=== PATIENT | male | born 1940 | race Caucasian/White ===

== ENCOUNTER 2017-03-26 21:36 | Observation (INO) | payer MEDICARE, OTHER ==
[~2017-03-26] VITALS: Ht 190.5 cm; Wt 90.9 kg
[~2017-03-26 21:36] MED LIST: ADVIL 200MG TA200 MG PO; AMBIEN 10MG10 MG PO; BENADRYL25 M2 PO; CELEXA 20MG20 MG/TAB PO; CENTRUM SILVER1 CTB PO; DULCOLAX TAB5 MG PO; FIBERCON PO; HYZAAR 50-12.1 UDTAB PO; I-VITE LUTEIN1 TAB PO; LASIX 20MG TABL20 MG PO; LOTREL 10 MG-201 CAP PO; MILK OF MA400 MG/5 M PO; MOTRIN 200200 MG/TAB PO; MULTIPLE VITAMI1 CAP PO; NEURONTIN100 MG/CAP PO; NORCO 325 MG-101 TAB PO; NORCO 325 MG-51 TAB PO; NORCO 325 MG-7.1 TAB PO; NORVASC 10MG10 MG PO; OMNICEF 300MG300 MG PO; PIROXICAM PO; PRILOSEC 20MG20 MG PO; ROBAXIN 75750 MG/TAB PO; TOPROL XL 50MG50 MG PO; TYLENOL 500MG500 MG PO; ULTRAM 50MG TAB50 MG PO; XARELTO10 MG PO; XARELTO20 MG PO; ZOCOR 10MG10 MG PO; ZYRTEC 10MG10 MG PO; [UNRECOGNIZED DRUG - OTHER] PO; garlic PO; melatonin PO
[2017-03-26 22:08] LABS: BASO # 0.1 (0.0-0.2); BASO % 0.4 % (0.0-2.0); EOS # 0.3 (0.0-0.7); GRAN # 12.9 (1.4-6.5); GRAN % 82.7 % (42.2-75.2); LYMPH # 1.4 (1.2-3.4); LYMPH % 8.9 % (20.0-51.0); MEAN CELL VOLUME 84 fl (80.0-100.0); MEAN CORPUSCULAR HGB CONC 32 g/dl (33.0-37.0); MEAN PLATELET VOLUME 10.2 fl (7.4-10.4); MONO # 0.9 (0.1-0.6); MONO % 5.6 % (1.7-9.3); PLATELET COUNT 222 K/mm3 (130-400); RED BLOOD COUNT 4.37 M/mm3 (4.20-5.60); REDCELL DISTRIBUTION WIDTH-CV 14.6 % (11.5-14.5); WHITE BLOOD COUNT 15.6 K/mm3 (4.8-10.8)
[2017-03-26 22:15] LABS: HEMATOCRIT 36.7 % (42.0-52.0); HEMOGLOBIN 11.6 g/dl (13.5-18.0); MEAN CORPUSCULAR HEMOGLOBIN 27 pg (27.0-31.0)
[2017-03-26 22:18] LABS: ADJUSTED CALCIUM 8.7 mg/dL (8.4-10.2); ALANINE AMINOTRANSFERASE 19 U/L (21-72); ALBUMIN 4.4 gm/dL (3.5-5.0); ALKALINE PHOSPHATASE 96 U/L (50-136); ANION GAP 13 mmol/L (7-16); BILIRUBIN,TOTAL 0.8 mg/dL (0.0-1.0); BLOOD UREA NITROGEN 14 mg/dL (9-20); CARBON DIOXIDE 26 mmol/L (22-30); CHLORIDE 97 mmol/L (98-107); CREATININE, serum 0.99 mg/dL (0.66-1.25); GLUCOSE 105 mg/dL (74-106); POTASSIUM 4.5 mmol/L (3.4-5.0); SODIUM 136 mmol/L (137-145); TOTAL PROTEIN 7.7 gm/dL (6.4-8.2)
[2017-03-26 22:25] LABS: INR 1.4 (0.8-3.0); PROTHROMBIN TIME 15.3 SECONDS (9.7-12.8)
[2017-03-26 22:29] LABS: B-TYPE NATRIURETIC PEPTIDE 1770 pg/mL (0-450)
[2017-03-26 22:38] LABS: TROPONIN-I < 0.012 ng/mL (0.000-0.034)
[2017-03-27] VITALS (8 sets, daily range): BP systolic 108–167; BP diastolic 40–68; PULSE 57–122; TEMP 97.9–98.6
[2017-03-27 06:53] LABS: MEAN CELL VOLUME 85 fl (80.0-100.0); MEAN CORPUSCULAR HGB CONC 31 g/dl (33.0-37.0); MEAN PLATELET VOLUME 10.5 fl (7.4-10.4); PLATELET COUNT 205 K/mm3 (130-400); REDCELL DISTRIBUTION WIDTH-CV 14.7 % (11.5-14.5); WHITE BLOOD COUNT 11.6 K/mm3 (4.8-10.8)
[2017-03-27 06:58] LABS: HEMATOCRIT 34.8 % (42.0-52.0); HEMOGLOBIN 10.9 g/dl (13.5-18.0); MEAN CORPUSCULAR HEMOGLOBIN 27 pg (27.0-31.0)
[2017-03-27 06:59] LABS: ADD PATHOLOGY DIFF REVIEW NO
[2017-03-27 07:02] LABS: CALCIUM 8.5 mg/dL (8.4-10.2); CREATININE, serum 1.11 mg/dL (0.66-1.25); POTASSIUM 4.4 mmol/L (3.4-5.0)
[2017-03-27 08:17] LABS: BAND 15 % (0-10); NEUTROPHILS 82 % (42.0-75.2); TOTAL CELLS COUNTED 100
[2017-03-27 08:21] LABS: PLATELET ESTIMATE NORMAL (NORMAL)
[2017-03-27 13:47] LABS: PH 5 (5-8); URINE APPEARANCE Hazy; URINE BACTERIA None Seen /hpf; URINE BILIRUBIN Negative (NEGATIVE); URINE BLOOD Negative (NEGATIVE); URINE COLOR Amber; URINE GLUCOSE Negative (NEGATIVE); URINE KETONE Negative (NEGATIVE); URINE RBC 0-2 /hpf; URINE UROBILINOGEN Negative (NEGATIVE)
[2017-03-27 14:21] LABS: SQUAMOUS EPITHELIAL 0-2 /hpf
[2017-03-28 03:38] VITALS: BP 150/53; PULSE 63; TEMP 98.4
[2017-03-28 07:57] VITALS: BP 148/53; PULSE 62; TEMP 97.8
[2017-03-28 12:15] VITALS: BP 152/52; PULSE 65; TEMP 97.9
[2017-03-28] MEDS ORDERED: ZITHROMAX 250M250 MG PO (15:41)
[2017-03-28] MEDS ORDERED: MUCINEX DM 30 M1 TE1 PO (15:42)
[2017-03-28] MEDS ORDERED: RT ADVAIR HFA 1112 G IH (15:43)
[2017-03-28] MEDS ORDERED: MEDROL 4MG DOSPA4 MG PO (15:44)
== END 2017-03-28 16:10 | disposition home or self-care (01) ==
LOC: COL.ER 21:36 → MEDICAL 22:58
PROVIDERS: Emergency Medicine; Family Medicine
DX: J44.1 Chronic obstructive pulmonary disease with (acute) exacerbation (principal); B34.9 Viral infection, unspecified; I48.0 Paroxysmal atrial fibrillation; I11.0 Hypertensive heart disease with heart failure; I50.30 Unspecified diastolic (congestive) heart failure; E78.5 Hyperlipidemia, unspecified; M54.9 Dorsalgia, unspecified; G89.29 Other chronic pain; D64.9 Anemia, unspecified; M19.90 Unspecified osteoarthritis, unspecified site; G47.00 Insomnia, unspecified; Z79.01 Long term (current) use of anticoagulants; Z87.891 Personal history of nicotine dependence
CPT/HCPCS: 99222-AI; G0378; G8978-GP; G8979-GP; J0456; J0696; J1885; J7030; J7050; J7512

== ENCOUNTER 2019-01-03 11:06 | Emergency (ER) | payer MEDICARE, OTHER ==
[~2019-01-03] VITALS: Ht 190.5 cm; Wt 93.2 kg
[~2019-01-03 11:06] MED LIST changes: +MEDROL 4MG DOSPA4 MG PO; +MUCINEX DM 30 M1 TE1 PO; +RT ADVAIR HFA 1112 G IH; +ZITHROMAX 250M250 MG PO
[2019-01-03 11:13] VITALS: TEMP 97.6
[2019-01-03 12:32] LABS: BASO % 0.4 % (0.0-2.0); EOS # 0.5 (0.0-0.7); EOS % 5.6 % (0-4.0); GRAN # 5.3 (1.4-6.5); LYMPH # 1.8 (1.2-3.4); LYMPH % 21.5 % (20.0-51.0); MEAN CELL VOLUME 89 fl (80.0-100.0); MEAN CORPUSCULAR HEMOGLOBIN 28 pg (27.0-31.0); MEAN CORPUSCULAR HGB CONC 32 g/dl (33.0-37.0); MEAN PLATELET VOLUME 9.9 fl (7.4-10.4); MONO # 0.7 (0.1-0.6); PLATELET COUNT 191 K/mm3 (130-400); RED BLOOD COUNT 3.88 M/mm3 (4.20-5.60); REDCELL DISTRIBUTION WIDTH-CV 14.2 % (11.5-14.5)
[2019-01-03 12:33] LABS: HEMATOCRIT 34.4 % (42.0-52.0)
[2019-01-03 12:41] LABS: ALBUMIN 3.7 gm/dL (3.5-5.0); BILIRUBIN,TOTAL 0.3 mg/dL (0.0-1.0); CALCIUM 8.7 mg/dL (8.4-10.2); CREATININE, serum 0.95 mg/dL (0.66-1.25); POTASSIUM 4.6 mmol/L (3.4-5.0); TOTAL PROTEIN 6.7 gm/dL (6.4-8.2)
[2019-01-03] MEDS ORDERED: AMOXICILLIN 8751 TAB PO (13:04)
[2019-01-03 13:24] LABS: COLLECTION METHOD CLEAN CATCH
[2019-01-03 13:32] LABS: PH 8 (5-8); SQUAMOUS EPITHELIAL None Seen /hpf; URINE APPEARANCE Clear; URINE BACTERIA None Seen /hpf; URINE BILIRUBIN Negative (NEGATIVE); URINE BLOOD Negative (NEGATIVE); URINE COLOR Yellow; URINE GLUCOSE Negative (NEGATIVE); URINE KETONE Negative (NEGATIVE); URINE LEUKOCYTE ESTERASE Negative (NEGATIVE); URINE NITRATE Negative (NEGATIVE); URINE PROTEIN(semi-quant) 2+ (NEGATIVE); URINE RBC 0-2 /hpf; URINE UROBILINOGEN Negative (NEGATIVE)
[2019-01-03 14:16] VITALS: BP 159/71; PULSE 63
== END 2019-01-03 13:45 | disposition home or self-care (01) ==
LOC: COL.ER 11:06
PROVIDERS: Family Medicine
DX: L03.90 Cellulitis, unspecified (principal)
CPT/HCPCS: J3010; J7030

== ENCOUNTER → 2019-01-11 | Outpatient (CLI) | payer MEDICARE, OTHER ==
[~2019-01-11] MED LIST changes: +AMOXICILLIN 8751 TAB PO
== END ==
LOC: COL.VAS 12:25
DX: M79.89 Other specified soft tissue disorders (principal)

== ENCOUNTER 2019-02-11 14:12 | Emergency (ER) | payer MEDICARE, OTHER ==
[~2019-02-11] VITALS: Ht 190.5 cm; Wt 95.5 kg
[~2019-02-11 14:12] MED LIST changes: +ATROVENT I0.2 MG/1 M IH; +CENTRUM SILVER1 TAB; +DEEP SEA 45 ML45 ML NS; +DOXYCYCLINE 10100 MG PO; +ELIQUIS 5MG PO; +FIBERCON; +FLONASE NASAL S16 GM NS; +MOTRIN 400400 MG/TAB PO; +MUCUS RELIEF400 M1 PO; +PREDNISONE20 MG PO; +PRESERVISION1 SGL PO; +PULMICORT0.5 MG/2 M IH
[2019-02-11 14:19] VITALS: TEMP 99.7
[2019-02-11 15:25] LABS: BASO % 0.5 % (0.0-2.0); EOS # 0.3 (0.0-0.7); EOS % 3.2 % (0-4.0); GRAN # 5.1 (1.4-6.5); GRAN % 65.5 % (42.2-75.2); HEMOGLOBIN 10.9 g/dl (13.5-18.0); LYMPH # 1.9 (1.2-3.4); LYMPH % 24.2 % (20.0-51.0); MEAN CELL VOLUME 91 fl (80.0-100.0); MEAN CORPUSCULAR HEMOGLOBIN 28 pg (27.0-31.0); MEAN CORPUSCULAR HGB CONC 31 g/dl (33.0-37.0); MEAN PLATELET VOLUME 10.2 fl (7.4-10.4); MONO # 0.5 (0.1-0.6); MONO % 6.1 % (1.7-9.3); PLATELET COUNT 240 K/mm3 (130-400); RED BLOOD COUNT 3.85 M/mm3 (4.20-5.60); REDCELL DISTRIBUTION WIDTH-CV 14.3 % (11.5-14.5)
[2019-02-11 15:41] LABS: ALANINE AMINOTRANSFERASE 15 U/L (21-72); ALBUMIN 4.1 gm/dL (3.5-5.0); ALKALINE PHOSPHATASE 59 U/L (50-136); ANION GAP 9 mmol/L (7-16); AST,SGOT 32 U/L (15-37); BILIRUBIN,TOTAL 0.3 mg/dL (0.0-1.0); BLOOD UREA NITROGEN 19 mg/dL (9-20); C-REACTIVE PROTEIN 1.8 mg/dL (0.0-0.9); CALCIUM 9.3 mg/dL (8.4-10.2); CARBON DIOXIDE 29 mmol/L (22-30); CHLORIDE 99 mmol/L (98-107); GLUCOSE 121 mg/dL (74-106); POTASSIUM 4.6 mmol/L (3.4-5.0); SODIUM 136 mmol/L (137-145); TOTAL PROTEIN 7.5 gm/dL (6.4-8.2)
[2019-02-11 15:53] LABS: TROPONIN-I < 0.012 ng/mL (0.000-0.035)
[2019-02-11 17:26] LABS: COLLECTION METHOD CLEAN CATCH
[2019-02-11 17:33] LABS: PH 7 (5-8); SQUAMOUS EPITHELIAL None Seen /hpf; URINE APPEARANCE Clear; URINE BACTERIA None Seen /hpf; URINE BILIRUBIN Negative (NEGATIVE); URINE BLOOD Negative (NEGATIVE); URINE COLOR Yellow; URINE GLUCOSE Negative (NEGATIVE); URINE KETONE Negative (NEGATIVE); URINE LEUKOCYTE ESTERASE Negative (NEGATIVE); URINE NITRATE Negative (NEGATIVE); URINE PROTEIN(semi-quant) 2+ (NEGATIVE); URINE RBC 0-2 /hpf; URINE UROBILINOGEN Negative (NEGATIVE)
--- NOTE | 2019-02-11 17:38 | NUR ---
TSERING was contacted by ED doctor about patient possibly needing SNF placement. TSERING met with patient and about options. Patient was recently admitted to the hospital from 02/02-02/04 and was set up with [facility]. Patient did not have 3 inpatient midnights in the hospital within the last 30 days, so he is not eligible for a skilled stay paid for by Medicare. Patient's reports she spoke with Tuyet from [facility] today and she would like to know if patient would be able to go to [facility] from the ED. TSERING conacted Tuyet and she reports [facility] is full and patient is too functional for [facility]. TSERING reported this information to patient and . Patient's requested TSERING inquire about private paying for a skilled stay at [facility]. TSERING contacted Tomas from [facility] and he reports it is $256/day and if patient were to stay for 2 weeks, patient and would have to pay $3,300 up front and Medicare would pay for PT and OT. Patient and are both agreeable to this plan and think that a two week skilled stay at [facility] would benefit patient. TSERING faxed patient's information to Tomas and is waiting for a call back about patient acceptance.
--- NOTE | 2019-02-11 18:05 | NUR ---
Patient was accepted to [facility] for a 2 week respite stay. SW faxed discharge orders and updated ED staff.
[2019-02-11] MEDS ORDERED: DOXYCYCLINE HY100 MG PO (18:28)
[2019-02-11 18:45] VITALS: BP 165/78; PULSE 56
== END 2019-02-11 18:45 ==
LOC: COL.ER 14:12
PROVIDERS: Emergency Medicine
DX: J32.1 Chronic frontal sinusitis (principal); I50.9 Heart failure, unspecified; I11.0 Hypertensive heart disease with heart failure; J44.9 Chronic obstructive pulmonary disease, unspecified; M06.9 Rheumatoid arthritis, unspecified; I48.91 Unspecified atrial fibrillation; E78.5 Hyperlipidemia, unspecified; Z79.01 Long term (current) use of anticoagulants; Z79.51 Long term (current) use of inhaled steroids
CPT/HCPCS: J1940

== ENCOUNTER → 2019-03-06 | Outpatient (REF) ==
[~2019-03-06] MED LIST changes: +DOXYCYCLINE HY100 MG PO
[2019-03-06 09:42] LABS: COLLECTION METHOD CLEAN CATCH
[2019-03-06 09:50] LABS: BASO # 0.1 (0.0-0.2); BASO % 0.5 % (0.0-2.0); EOS # 0.2 (0.0-0.7); EOS % 2.3 % (0-4.0); GRAN # 6.5 (1.4-6.5); GRAN % 66.9 % (42.2-75.2); HEMATOCRIT 33.4 % (42.0-52.0); HEMOGLOBIN 10.5 g/dl (13.5-18.0); LYMPH % 20.5 % (20.0-51.0); MEAN CELL VOLUME 90 fl (80.0-100.0); MEAN CORPUSCULAR HEMOGLOBIN 28 pg (27.0-31.0); MEAN CORPUSCULAR HGB CONC 31 g/dl (33.0-37.0); MEAN PLATELET VOLUME 10.2 fl (7.4-10.4); MONO # 0.9 (0.1-0.6); MONO % 9.1 % (1.7-9.3); PLATELET COUNT 197 K/mm3 (130-400); RED BLOOD COUNT 3.71 M/mm3 (4.20-5.60); REDCELL DISTRIBUTION WIDTH-CV 14.1 % (11.5-14.5)
[2019-03-06 09:53] LABS: PH 7 (5-8); SQUAMOUS EPITHELIAL 0-2 /hpf; URINE APPEARANCE Clear; URINE BACTERIA None Seen /hpf; URINE BILIRUBIN Negative (NEGATIVE); URINE BLOOD Negative (NEGATIVE); URINE COLOR Straw; URINE GLUCOSE Negative (NEGATIVE); URINE KETONE Negative (NEGATIVE); URINE LEUKOCYTE ESTERASE Negative (NEGATIVE); URINE NITRATE Negative (NEGATIVE); URINE PROTEIN(semi-quant) 1+ (NEGATIVE); URINE RBC 0-2 /hpf; URINE UROBILINOGEN Negative (NEGATIVE); URINE WBC 0-2 /hpf
[2019-03-06 10:03] LABS: ALBUMIN 3.4 gm/dL (3.5-5.0); BILIRUBIN,TOTAL 0.1 mg/dL (0.0-1.0); CALCIUM 8.3 mg/dL (8.4-10.2); CREATININE, serum 1.39 (0.66-1.25); POTASSIUM 4.6 mmol/L (3.4-5.0); TOTAL PROTEIN 6.4 gm/dL (6.4-8.2)
== END ==
LOC: ZLAB.STJ 09:41
PROVIDERS: Family Medicine
DX: Z01.89 Encounter for other specified special examinations (principal)

== ENCOUNTER → 2019-03-08 | Outpatient (CLI) | payer MEDICARE, OTHER | LOC: COL.RAD 10:20 | DX: J69.0 Pneumonitis due to inhalation of food and vomit (principal) ==

== ENCOUNTER → 2019-05-03 | Outpatient (CLI) | payer MEDICARE, OTHER | LOC: COL.RAD 08:51 | DX: N18.3 Chronic kidney disease, stage 3 (moderate) (principal); N17.8 Other acute kidney failure ==

== ENCOUNTER 2019-06-06 06:23 | Emergency (ER) | payer MEDICARE ==
[~2019-06-06] VITALS: Ht 190.5 cm; Wt 96.4 kg
[~2019-06-06 06:23] MED LIST changes: -CENTRUM SILVER1 TAB; +CENTRUM SILVER1 TAB PO; +LASIX 40MG TABL40 MG PO; +OCUVITE1 TA1 PO
[2019-06-06 06:24] VITALS: TEMP 98
[2019-06-06 06:38] LABS: PROTHROMBIN TIME 11.9 SECONDS (9.7-12.8)
[2019-06-06 06:41] LABS: PARTIAL THROMBOPLASTIN TIME 29.6 SECONDS (26.0-37.0)
[2019-06-06 06:46] LABS: ALANINE AMINOTRANSFERASE < 6 U/L (21-72); ALBUMIN 4.2 gm/dL (3.5-5.0); ALKALINE PHOSPHATASE 73 U/L (50-136); ANION GAP 13 mmol/L (7-16); AST,SGOT 27 U/L (15-37); BASO % 0.3 % (0.0-2.0); BILIRUBIN,TOTAL 0.4 mg/dL (0.0-1.0); BLOOD UREA NITROGEN 17 mg/dL (9-20); CALCIUM 9.3 mg/dL (8.4-10.2); CARBON DIOXIDE 22 mmol/L (22-30); CHLORIDE 100 mmol/L (98-107); EOS # 0.2 (0.0-0.7); EOS % 1.7 % (0-4.0); GLUCOSE 92 mg/dL (74-106); GRAN # 8.4 (1.4-6.5); GRAN % 69.2 % (42.2-75.2); HEMOGLOBIN 11.1 g/dl (13.5-18.0); LIPASE 138 U/L (23-300); LYMPH # 2.6 (1.2-3.4); LYMPH % 21.7 % (20.0-51.0); MEAN CELL VOLUME 89 fl (80.0-100.0); MEAN CORPUSCULAR HEMOGLOBIN 29 pg (27.0-31.0); MEAN CORPUSCULAR HGB CONC 33 g/dl (33.0-37.0); MEAN PLATELET VOLUME 9.5 fl (7.4-10.4); MONO # 0.8 (0.1-0.6); MONO % 6.2 % (1.7-9.3); PLATELET COUNT 255 K/mm3 (130-400); POTASSIUM 4.9 mmol/L (3.4-5.0); RED BLOOD COUNT 3.81 M/mm3 (4.20-5.60); REDCELL DISTRIBUTION WIDTH-CV 14.9 % (11.5-14.5); SODIUM 136 mmol/L (137-145); TOTAL PROTEIN 7.4 gm/dL (6.4-8.2)
[2019-06-06 06:57] LABS: TROPONIN-I < 0.012 ng/mL (0.000-0.035)
[2019-06-06] MEDS ORDERED: LASIX 20MG TABL20 MG PO (07:05)
[2019-06-06] MEDS ORDERED: FIBERCON PO (07:10)
[2019-06-06] MEDS ORDERED: PREDNISONE20 MG PO (07:34)
[2019-06-06] MEDS ORDERED: AMOXICILLIN 8751 TAB PO (07:34)
[2019-06-06 11:46] VITALS: BP 179/79; PULSE 78
--- NOTE | 2019-06-06 12:12 | NUR ---
TSERING was called by ED nurse to meet with patient and about home resources. Patient was recently discharged from [facility] on 05/26. Patient was set up with [facility] for PT, OT, correction, and a bath aid. [facility] reports that patient was SBA and Mod I when he discharged and was able to walk with his walker. Patient's is his primary companion caregiver but has a lot of support from other family and friends. Patient's reports since patient has been at home, he uses an exercise machine and walks laps around their house with assistance from his walker. reports that they would prefer to be at home but is aware that in the future, they will need to move into assisted living or a long-term. TSERING informed patient's that there are companies, including [facility], that provide extra services but they are private pay. TSERING offered to provide a contact information for these companies but she reported she would like to contact [facility] before using any other companies. TSERING also contacted Lily, the cocktail lounge manager at Dr Fair's office, about patient. Lily reports that she will speak with patient's later today.
== END 2019-06-06 11:43 | disposition home or self-care (01) ==
LOC: COL.ER 06:23 → SURG 07:14 → COL.ER 07:14
PROVIDERS: Emergency Medicine
DX: R06.02 Shortness of breath (principal); I48.91 Unspecified atrial fibrillation; I50.9 Heart failure, unspecified; I11.0 Hypertensive heart disease with heart failure; J44.9 Chronic obstructive pulmonary disease, unspecified; M06.9 Rheumatoid arthritis, unspecified; Z79.01 Long term (current) use of anticoagulants
CPT/HCPCS: J2060; J2930

== ENCOUNTER → 2019-08-18 | Outpatient (CLI) | payer MEDICARE, OTHER | LOC: COL.RAD 08:00 | DX: R13.14 Dysphagia, pharyngoesophageal phase (principal); Z96.9 Presence of functional implant, unspecified; Z96.612 Presence of left artificial shoulder joint ==

== ENCOUNTER 2019-10-13 14:23 | Inpatient (IN) | payer MEDICARE, OTHER ==
[~2019-10-13] VITALS: Ht 188 cm; Wt 94.2 kg
[2019-10-13] MEDS ORDERED: IPRATROPIUM BROM3 M1 IH (14:37)
[2019-10-13] MEDS ORDERED: ATIVAN 0.50.5 MG/TAB PO (14:40)
[2019-10-13] MEDS ORDERED: ZESTRIL40 MG PO (14:40)
[2019-10-13 15:11] LABS: BASO % 0.4 % (0.0-2.0); EOS # 0.3 (0.0-0.7); EOS % 3.6 % (0-4.0); GRAN # 4.7 (1.4-6.5); GRAN % 65.5 % (42.2-75.2); HEMOGLOBIN 10.2 g/dl (13.5-18.0); LYMPH # 1.7 (1.2-3.4); LYMPH % 23.8 % (20.0-51.0); MEAN CELL VOLUME 95 fl (80.0-100.0); MEAN CORPUSCULAR HEMOGLOBIN 30 pg (27.0-31.0); MEAN CORPUSCULAR HGB CONC 31 g/dl (33.0-37.0); MEAN PLATELET VOLUME 9.4 fl (7.4-10.4); MONO # 0.5 (0.1-0.6); MONO % 6.4 % (1.7-9.3); PLATELET COUNT 180 K/mm3 (130-400); RED BLOOD COUNT 3.43 M/mm3 (4.20-5.60); REDCELL DISTRIBUTION WIDTH-CV 12.8 % (11.5-14.5)
[2019-10-13 15:12] LABS: HEMATOCRIT 32.5 % (42.0-52.0)
[2019-10-13 15:17] LABS: INR 1.4 (0.8-3.0); PROTHROMBIN TIME 16.1 SECONDS (9.7-12.8)
[2019-10-13 15:25] LABS: ALANINE AMINOTRANSFERASE 12 U/L (21-72); ALBUMIN 4.2 gm/dL (3.5-5.0); ALKALINE PHOSPHATASE 60 U/L (50-136); ANION GAP 9 mmol/L (7-16); AST,SGOT 20 U/L (15-37); BILIRUBIN,TOTAL 0.2 mg/dL (0.0-1.0); BLOOD UREA NITROGEN 32 mg/dL (9-20); CALCIUM 9.2 mg/dL (8.4-10.2); CARBON DIOXIDE 23 mmol/L (22-30); CHLORIDE 107 mmol/L (98-107); CREATININE, serum 1.84 (0.66-1.25); GLUCOSE 110 mg/dL (74-106); SODIUM 139 mmol/L (137-145); TOTAL PROTEIN 7.3 gm/dL (6.4-8.2)
[2019-10-13 15:28] LABS: C-REACTIVE PROTEIN < 0.5 mg/dL (0.0-0.9)
[2019-10-13 16:28] LABS: MAGNESIUM 2.1 mg/dL (1.6-2.3); PHOSPHOROUS 3.6 mg/dL (2.5-4.5)
[2019-10-13 16:41] LABS: TROPONIN-I < 0.012 ng/mL (0.000-0.035)
--- NOTE | 2019-10-13 20:50 | NUR ---
Patient arrived to medical floor at this time. RECRUITMENT SPECIALIST in room for VS.
[2019-10-13 21:16] VITALS: BP 156/84; PULSE 64; TEMP 97.3
--- NOTE | 2019-10-13 21:44 | NUR ---
Assessment complete. Lungs clear. Heart sounds normal. Bowels active x4. Pulses present throughout. No edema noted. Denies pain at this time. INT right forearm without complications. All questions answered. Orientated to medical floor. Med rec complete. Denies any questions at this time. Requested dinner. Will provided to patient.
[2019-10-13 22:23] LABS: CREATININE, serum 1.74 (0.66-1.25); POTASSIUM 5.7 mmol/L (3.4-5.0)
--- NOTE | 2019-10-13 22:45 | NUR ---
IV fluids started as ordered at this time. Denies other needs. Call light in reach.
--- NOTE | 2019-10-13 23:30 | NUR ---
Up to restroom x1 assist with walker and gait belt. Returned to bed. Denies other needs at this time. Call light in reach.
[2019-10-14 00:27] VITALS: BP 132/42; PULSE 66; TEMP 97.9
--- NOTE | 2019-10-14 01:53 | NUR ---
Providing patient with tramadol for 7/10 headache at this time.
[2019-10-14 03:35] VITALS: BP 157/55; PULSE 59; TEMP 97.9
--- NOTE | 2019-10-14 04:16 | NUR ---
Reports headache from rhino rocket. Recently given tramadol. Denies other needs. Call light in reach.
--- NOTE | 2019-10-14 06:06 | NUR ---
Patient had uneventful night. Headache with rhino rocket throughout night. Was given tylenol and tramadol for pain relief. Resting in bed this AM. Call light in reach.
[2019-10-14 06:30] LABS: BASO % 0.4 % (0.0-2.0); EOS # 0.3 (0.0-0.7); EOS % 4.3 % (0-4.0); GRAN # 4.2 (1.4-6.5); LYMPH # 2.3 (1.2-3.4); LYMPH % 30.5 % (20.0-51.0); MEAN CELL VOLUME 95 fl (80.0-100.0); MEAN CORPUSCULAR HGB CONC 31 g/dl (33.0-37.0); MEAN PLATELET VOLUME 9.8 fl (7.4-10.4); MONO # 0.6 (0.1-0.6); MONO % 7.4 % (1.7-9.3); PLATELET COUNT 161 K/mm3 (130-400); RED BLOOD COUNT 3.06 M/mm3 (4.20-5.60); REDCELL DISTRIBUTION WIDTH-CV 12.8 % (11.5-14.5)
[2019-10-14 06:34] LABS: MEAN CORPUSCULAR HEMOGLOBIN 29 pg (27.0-31.0)
[2019-10-14 06:48] LABS: CALCIUM 8.5 mg/dL (8.4-10.2); CREATININE, serum 1.52 (0.66-1.25); POTASSIUM 5.2 mmol/L (3.4-5.0)
--- NOTE | 2019-10-14 07:19 | NUR ---
Report given to ELISEO Palomo
--- NOTE | 2019-10-14 07:20 | NUR ---
Report received from ELISEO Karimi. PT in bed resting, denies needs, will continue to montior.
[2019-10-14 08:20] VITALS: BP 177/52; PULSE 61; TEMP 98.3
--- NOTE | 2019-10-14 10:03 | NUR ---
TSERING met with the patient to discuss a discharge plan. The patient lives in [place] with Kelin his life-partner of 41 years. The patient has a cane, walker and wheelchair. The patient receives nursing services 1 x weekly from [facility]. The patient and Kelin would like to continue with [facility] with services upon discharge. The patient's PCP is Dr. Fair and patient receives medications from [facility]. The patient reports Kelin picks up his medications. PT/OT ordered for the patient. gate services supervisor will continue to follow to ensure a safe discharge.
--- NOTE | 2019-10-14 10:47 | NUR ---
Assessment charted. Pt resting in bed, very NISQUALLY, significant other here now, pt has pain in head at 8/10 over L forehead/eye area, rhino rocket in place. Called ER regarding care of rhino rocket and gave recommendations to hospitalist SPORTS RECRUITER. Pt resting, R groin site is red, put cream on as ordered. IVF to RW. Will continue to monitor.
--- NOTE | 2019-10-14 11:12 | NUR ---
The best contact number for Kelin is .
[2019-10-14 12:49] VITALS: BP 167/65; PULSE 66; TEMP 98
[2019-10-14 16:31] VITALS: BP 143/57; PULSE 58; TEMP 97.9
--- NOTE | 2019-10-14 17:13 | NUR ---
Pt has done well over shift. Restng in bed well, PRN meds given for pain. Ice pack to head as needed for pain. Called Dr. Cortes per hospitalist for recs with arthur ladd, received and will implement. Will give bedside shift report to nightshiftn kerry devlin will resume care.
[2019-10-14 19:05] LABS: COLLECTION METHOD CLEAN CATCH
[2019-10-14 19:33] LABS: PH 6 (5-8); SQUAMOUS EPITHELIAL None Seen /hpf; URINE APPEARANCE Clear; URINE BACTERIA None Seen /hpf; URINE BILIRUBIN Negative (NEGATIVE); URINE BLOOD Negative (NEGATIVE); URINE COLOR Straw; URINE GLUCOSE Negative (NEGATIVE); URINE KETONE Negative (NEGATIVE); URINE LEUKOCYTE ESTERASE Negative (NEGATIVE); URINE NITRATE Negative (NEGATIVE); URINE PROTEIN(semi-quant) Negative (NEGATIVE); URINE RBC 0-2 /hpf; URINE UROBILINOGEN Negative (NEGATIVE)
--- NOTE | 2019-10-14 19:45 | NUR ---
Pt helped up to bathroom. Ambulated with 1 assist and walker. Well tolerated. Voiding clear yellow urine. Respirations even and unlabored. Lungs clear. O2@2L- baseline oxygen at home. Abdomen firm, nontedner. BS+. No edema noted. Rhino rocket to L nare intact. Pt c/o sinus pressure. PRN pain meds were given by dayshift. No other needs noted.
[2019-10-14 20:09] VITALS: BP 160/56; PULSE 68; TEMP 98
[2019-10-15] VITALS (7 sets, daily range): BP systolic 146–167; BP diastolic 40–63; PULSE 67–84; TEMP 97.7–98.2
--- NOTE | 2019-10-15 06:30 | NUR ---
Pt resting this AM. No distress noted. Pt states he has slept well. He has had no complaints. He was up to the bathroom with walker multiple times. Well tolerated.
--- NOTE | 2019-10-15 07:20 | NUR ---
Report given to Suzie GOMES
--- NOTE | 2019-10-15 09:00 | NUR ---
Pt assessment completed and charted. Pt A&O. Morning medications administered per MAR. Pt assisted to bathroom this morning, 1 assist w/ walker. Pt on room air at this time, satting mid 90s. Pt has RWR INT IV, flushes w/o complications. PRN cream per DEC applied to reddened area under abdominal fold on right side. Pt denies pain at this time. Pt denies SOB, dizzines, N/V/D, chest pain. Pt hsa rhino rocket to Lt nare. LS cta, heart RRR, BSx4, pulses strong bilaterally. No other concerns expressed at this time. Call light within reach.
[2019-10-15 10:28] LABS: BASO # 0.1 (0.0-0.2); BASO % 0.4 % (0.0-2.0); EOS # 0.4 (0.0-0.7); EOS % 3.2 % (0-4.0); GRAN # 8.5 (1.4-6.5); GRAN % 75.8 % (42.2-75.2); HEMOGLOBIN 10.4 g/dl (13.5-18.0); LYMPH # 1.5 (1.2-3.4); LYMPH % 13.7 % (20.0-51.0); MEAN CELL VOLUME 95 fl (80.0-100.0); MEAN CORPUSCULAR HEMOGLOBIN 30 pg (27.0-31.0); MEAN CORPUSCULAR HGB CONC 31 g/dl (33.0-37.0); MEAN PLATELET VOLUME 9.7 fl (7.4-10.4); MONO # 0.7 (0.1-0.6); MONO % 6.5 % (1.7-9.3); PLATELET COUNT 210 K/mm3 (130-400); RED BLOOD COUNT 3.51 M/mm3 (4.20-5.60); REDCELL DISTRIBUTION WIDTH-CV 12.8 % (11.5-14.5)
[2019-10-15 10:39] LABS: HEMATOCRIT 33.4 % (42.0-52.0)
[2019-10-15 10:45] LABS: CALCIUM 9.1 mg/dL (8.4-10.2); CREATININE, serum 1.37 (0.66-1.25); POTASSIUM 5.6 mmol/L (3.4-5.0)
--- NOTE | 2019-10-15 20:30 | NUR ---
Initial shift assessment done- states headache is better after receiving pain pills at shift change, denies SOB, tele on, rhino rocket in left nare, no bleeding noted, scd,s on--no requests at this time - understands to call for assistance up-will have alarm on to remind
[2019-10-16 03:54] VITALS: BP 152/55; PULSE 77; TEMP 98.3
--- NOTE | 2019-10-16 06:23 | NUR ---
Quiet night- did get ULtram 100mg around 0100 this morning for headache- has been resting since then-- VSS
[2019-10-16 07:48] VITALS: BP 127/49; PULSE 74; TEMP 98.5
--- NOTE | 2019-10-16 09:16 | NUR ---
Pt assessment completed and charted. Morning medications administered per DEC. Pt c/o headache and sinus pressure, left nare rhino rocket in place. Pt received PRN tylenol at shift change. Rating headache 05/04. Denies SOB, on room, breathing is even and unlabored. Denies chest pain, dizziness, N/V/D, abdominal pain. Pt is 1 assist w/ walker to bathroom. LS cta, BS x4, pulses strong bilaterally, heart RRR. No other concerns expresse at this time.
[2019-10-16 11:17] VITALS: BP 129/55; PULSE 65; TEMP 98.5
[2019-10-16 11:25] LABS: BASO % 0.4 % (0.0-2.0); EOS # 0.2 (0.0-0.7); EOS % 2.4 % (0-4.0); GRAN # 6.5 (1.4-6.5); LYMPH # 2.1 (1.2-3.4); LYMPH % 21.5 % (20.0-51.0); MEAN CELL VOLUME 94 fl (80.0-100.0); MEAN CORPUSCULAR HGB CONC 32 g/dl (33.0-37.0); MEAN PLATELET VOLUME 9.8 fl (7.4-10.4); MONO # 0.9 (0.1-0.6); MONO % 9.3 % (1.7-9.3); PLATELET COUNT 161 K/mm3 (130-400); RED BLOOD COUNT 3.16 M/mm3 (4.20-5.60); REDCELL DISTRIBUTION WIDTH-CV 12.8 % (11.5-14.5)
[2019-10-16 11:26] LABS: HEMATOCRIT 29.7 % (42.0-52.0); HEMOGLOBIN 9.4 g/dl (13.5-18.0); MEAN CORPUSCULAR HEMOGLOBIN 30 pg (27.0-31.0)
[2019-10-16 11:36] LABS: CALCIUM 8.8 mg/dL (8.4-10.2); CREATININE, serum 1.53 (0.66-1.25); POTASSIUM 5.4 mmol/L (3.4-5.0)
[2019-10-16 16:30] VITALS: BP 123/74; PULSE 78; TEMP 97.3
--- NOTE | 2019-10-16 17:08 | NUR ---
Pt assisted to bathroom, 1 assist with walker. pt denies pain at this time. Refuses SCDs at this time.
[2019-10-16 19:27] VITALS: BP 172/52; PULSE 73; TEMP 98.6
--- NOTE | 2019-10-16 20:00 | NUR ---
Received report from ELISEO Larsen. Assessment complete. Denies any pain or discomfort at this time. Rhinorocket in place to left nostril. Tele monitor in place, leads checked. INT to RW intact, flushed, dressing CDI. Assisted pt to bathroom with use of walker. Meds administered as ordered. Needs met. Call light within reach.
[2019-10-16 23:20] VITALS: BP 167/72; PULSE 73; TEMP 99
[2019-10-17 04:16] VITALS: BP 152/57; PULSE 70; TEMP 98.3
--- NOTE | 2019-10-17 05:18 | NUR ---
Pt uneventful during this shift. Needs attended too. Call light within reach.
--- NOTE | 2019-10-17 07:10 | NUR ---
Report given to ELISEO Bautista.
[2019-10-17 07:21] VITALS: BP 151/50; PULSE 71; TEMP 98.1
[2019-10-17 07:30] LABS: BASO % 0.3 % (0.0-2.0); EOS # 0.3 (0.0-0.7); GRAN # 6.1 (1.4-6.5); GRAN % 65.8 % (42.2-75.2); LYMPH # 2.2 (1.2-3.4); LYMPH % 23.2 % (20.0-51.0); MEAN CELL VOLUME 93 fl (80.0-100.0); MEAN CORPUSCULAR HGB CONC 32 g/dl (33.0-37.0); MEAN PLATELET VOLUME 10.1 fl (7.4-10.4); MONO # 0.7 (0.1-0.6); MONO % 7.3 % (1.7-9.3); PLATELET COUNT 171 K/mm3 (130-400); RED BLOOD COUNT 3.01 M/mm3 (4.20-5.60); REDCELL DISTRIBUTION WIDTH-CV 12.8 % (11.5-14.5)
[2019-10-17 07:38] LABS: HEMATOCRIT 27.9 % (42.0-52.0); HEMOGLOBIN 8.9 g/dl (13.5-18.0); MEAN CORPUSCULAR HEMOGLOBIN 30 pg (27.0-31.0)
[2019-10-17 07:40] LABS: CALCIUM 8.8 mg/dL (8.4-10.2); CREATININE, serum 1.4 (0.66-1.25); POTASSIUM 5.1 mmol/L (3.4-5.0)
[2019-10-17] MEDS ORDERED: TYLENOL 325MG325 MG PO (08:11)
[2019-10-17] MEDS ORDERED: ANTI-FUNGAL1% TP (08:12)
[2019-10-17] MEDS ORDERED: ATIVAN 0.50.5 MG/TAB PO (08:12)
[2019-10-17] MEDS ORDERED: ULTRAM 50MG TAB50 MG PO (08:12)
--- NOTE | 2019-10-17 09:22 | NUR ---
Kelin and the patient reports they have been at [facility] in the past and would like to go back for a senior care stay. TSERING faxed referral and Tomas reports they can accept the patient. financial services counselor will continue to follow.
[2019-10-17] MEDS ORDERED: NORVASC 5MG5 MG/TAB PO (09:35)
[2019-10-17] MEDS ORDERED: LASIX 20MG TABL20 MG PO (09:36)
--- NOTE | 2019-10-17 09:39 | NUR ---
The patient is to discharge today, 10/17, to [facility] for a skilled stay. Transportation was scheduled for 1100, via [facility]. TSERING informed the patient, his RN, and the patient's life partner (Kelin) via phone. They were all in agreeance to the time. TSERING also presented and explained the IM form to the patient. The patient verbalized understanding, signed, and he was provided a copy. No additional needs at this time.
--- NOTE | 2019-10-17 11:10 | NUR ---
T FACILITY HERE TO PHOTOGRAPHIC ENLARGER OPERATOR PT AT THIS TIME. THIS NURSE HAD REMOVED IV AND TELE WITHOUT ISSUES PRIOR TO THIER ARRIVAL. ASSISTANT TO THE VICE PRESIDENT ASSISTED PT IN GETING DRESSED TO GO NO ISSUES OR CONSERNS VOICED, NO QUESTIONS VOICED. FAMILY AT BEDSIDE.
--- NOTE | 2019-10-17 14:00 | NUR ---
[facility] FACILITY WAS GIVEN REPORT BY THIS NURSE. ALL QUESTIONS ANSWERED.
== END 2019-10-17 11:30 | DRG 683 ==
LOC: COL.ER 14:23 → MEDICAL 15:59
PROVIDERS: Emergency Medicine; Nurse Practitioner Family; Physician Assistant; ADMIT Student in an Organized Health Care Education/Training Program
DX: N17.9 Acute kidney failure, unspecified (principal); I50.22 Chronic systolic (congestive) heart failure; F33.9 Major depressive disorder, recurrent, unspecified; R04.0 Epistaxis; E87.5 Hyperkalemia; I11.0 Hypertensive heart disease with heart failure; J44.9 Chronic obstructive pulmonary disease, unspecified; I48.0 Paroxysmal atrial fibrillation; M51.36 Other intervertebral disc degeneration, lumbar region; G47.33 Obstructive sleep apnea (adult) (pediatric); M06.9 Rheumatoid arthritis, unspecified; T50.995A Adverse effect of other drugs, medicaments and biological substances, initial encounter; L30.4 Erythema intertrigo; R51 Headache; Z79.01 Long term (current) use of anticoagulants
CPT/HCPCS: 99232-AI; 99239; G0378; J0610; J1815; J7030

== ENCOUNTER → 2019-10-20 | Outpatient (CLI) | payer MEDICARE, OTHER ==
[~2019-10-20] MED LIST changes: +ANTI-FUNGAL1% TP; +ATIVAN 0.50.5 MG/TAB PO; +IPRATROPIUM BROM3 M1 IH; +NORVASC 5MG5 MG/TAB PO; +TYLENOL 325MG325 MG PO; +ZESTRIL40 MG PO
[2019-10-20 17:59] LABS: CALCIUM 8.9 mg/dL (8.4-10.2); CREATININE, serum 1.24 (0.66-1.25); POTASSIUM 5.5 mmol/L (3.4-5.0)
[2019-10-20 18:10] LABS: BASO # 0.1 (0.0-0.2); BASO % 0.6 % (0.0-2.0); EOS # 0.7 (0.0-0.7); EOS % 7.5 % (0-4.0); GRAN # 5.4 (1.4-6.5); GRAN % 60.5 % (42.2-75.2); LYMPH # 1.9 (1.2-3.4); LYMPH % 21.6 % (20.0-51.0); MEAN CELL VOLUME 93 fl (80.0-100.0); MEAN CORPUSCULAR HGB CONC 32 g/dl (33.0-37.0); MEAN PLATELET VOLUME 10.3 fl (7.4-10.4); MONO # 0.8 (0.1-0.6); MONO % 8.9 % (1.7-9.3); PLATELET COUNT 239 K/mm3 (130-400); RED BLOOD COUNT 3.14 M/mm3 (4.20-5.60); REDCELL DISTRIBUTION WIDTH-CV 12.5 % (11.5-14.5)
[2019-10-20 18:35] LABS: HEMATOCRIT 29.1 % (42.0-52.0); HEMOGLOBIN 9.4 g/dl (13.5-18.0); MEAN CORPUSCULAR HEMOGLOBIN 30 pg (27.0-31.0)
== END ==
LOC: ZLAB.STJ 17:30
PROVIDERS: Family Medicine
DX: E87.5 Hyperkalemia (principal); N17.9 Acute kidney failure, unspecified

== ENCOUNTER 2019-11-07 04:16 | Emergency (ER) | payer MEDICARE, OTHER ==
[~2019-11-07] VITALS: Ht 188 cm; Wt 93.2 kg
[2019-11-07 04:27] VITALS: TEMP 98
[2019-11-07 05:20] LABS: HEMATOCRIT 30.1 % (42.0-52.0); HEMOGLOBIN 9.5 g/dl (13.5-18.0); MEAN CELL VOLUME 95 fl (80.0-100.0); MEAN CORPUSCULAR HEMOGLOBIN 30 pg (27.0-31.0); MEAN CORPUSCULAR HGB CONC 32 g/dl (33.0-37.0); MEAN PLATELET VOLUME 9.5 fl (7.4-10.4); PLATELET COUNT 190 K/mm3 (130-400); RED BLOOD COUNT 3.18 M/mm3 (4.20-5.60); REDCELL DISTRIBUTION WIDTH-CV 13.8 % (11.5-14.5)
[2019-11-07 05:27] LABS: ALBUMIN 3.8 gm/dL (3.5-5.0); BILIRUBIN,TOTAL 0.2 mg/dL (0.0-1.0); CALCIUM 8.5 mg/dL (8.4-10.2); CREATININE, serum 1.14 (0.66-1.25); POTASSIUM 5.4 mmol/L (3.4-5.0); TOTAL PROTEIN 6.6 gm/dL (6.4-8.2)
[2019-11-07 05:38] LABS: TROPONIN-I 0.017 ng/mL (0.000-0.035)
[2019-11-07 05:48] LABS: COLLECTION METHOD CLEAN CATCH
[2019-11-07 05:48] LABS: BAND 3 % (0-10); LYMPHOCYTE 11 % (20.0-51.0); METAMYELOCYTE 6 % (0-0); NEUTROPHILS 79 % (42.0-75.2); PLATELET ESTIMATE NORMAL (NORMAL)
[2019-11-07 06:06] LABS: PH 7 (5-8); SQUAMOUS EPITHELIAL None Seen /hpf; URINE APPEARANCE Clear; URINE BACTERIA None Seen /hpf; URINE BILIRUBIN Negative (NEGATIVE); URINE BLOOD Negative (NEGATIVE); URINE COLOR Straw; URINE GLUCOSE Negative (NEGATIVE); URINE KETONE Negative (NEGATIVE); URINE LEUKOCYTE ESTERASE Negative (NEGATIVE); URINE NITRATE Negative (NEGATIVE); URINE PROTEIN(semi-quant) 2+ (NEGATIVE); URINE RBC 0-2 /hpf; URINE UROBILINOGEN Negative (NEGATIVE)
--- NOTE | 2019-11-07 08:32 | NUR ---
black off worker met with patient and discussed his and spouse's request to return to skilled care. Patient was discharged last week from skilled care at [facility]. Patient states he wishes to return to the [facility] and signed choice form. Worker contacted Tomas with the [facility] and faxed clinical information. Waiting to hear the [facility] accepts today, from the emergency room. Spouse is home now gathering items for patient to take to the [facility].
--- NOTE | 2019-11-07 11:31 | NUR ---
Tomas from [facility] reports they can accept the patient back for a halfway stay. ORTHO/PROSTHETIC AIDE student informed the team and the patient's partner, Kelin. All were in agreeance. ORTHO/PROSTHETIC AIDE student awaiting transport time.
--- NOTE | 2019-11-07 11:53 | NUR ---
The patient will be transported to [facility] at 1530. The team was notified. There are no additonal needs at this time.
[2019-11-07 13:00] VITALS: BP 150/96; PULSE 72
== END 2019-11-07 13:05 | disposition home or self-care (01) ==
LOC: COL.ER 04:16
PROVIDERS: Emergency Medicine
DX: R04.0 Epistaxis (principal); I11.0 Hypertensive heart disease with heart failure; I50.9 Heart failure, unspecified; I48.91 Unspecified atrial fibrillation; E78.5 Hyperlipidemia, unspecified; J44.9 Chronic obstructive pulmonary disease, unspecified; F32.9 Major depressive disorder, single episode, unspecified; Z79.01 Long term (current) use of anticoagulants

== ENCOUNTER 2020-01-13 22:28 | Inpatient (IN) | payer MEDICARE, OTHER ==
[~2020-01-13] VITALS: Ht 190.5 cm; Wt 92.6 kg
[2020-01-13 23:18] LABS: MEAN CELL VOLUME 94 fl (80.0-100.0); MEAN CORPUSCULAR HEMOGLOBIN 29 pg (27.0-31.0); MEAN CORPUSCULAR HGB CONC 31 g/dl (33.0-37.0); MEAN PLATELET VOLUME 10.1 fl (7.4-10.4); PLATELET COUNT 189 K/mm3 (130-400); REDCELL DISTRIBUTION WIDTH-CV 13.3 % (11.5-14.5)
[2020-01-13 23:21] LABS: HEMATOCRIT 35.6 % (42.0-52.0)
[2020-01-13 23:30] LABS: ALBUMIN 4.3 gm/dL (3.5-5.0); ALKALINE PHOSPHATASE 52 U/L (50-136); ANION GAP 16 mmol/L (7-16); AST,SGOT 28 U/L (15-37); BILIRUBIN,TOTAL 0.2 mg/dL (0.0-1.0); BLOOD UREA NITROGEN 28 mg/dL (9-20); CALCIUM 8.7 mg/dL (8.4-10.2); CARBON DIOXIDE 19 mmol/L (22-30); CHLORIDE 102 mmol/L (98-107); CREATINE KINASE 31 U/L (55-170); CREATININE, serum 1.21 (0.66-1.25); GLUCOSE 274 mg/dL (74-106); LIPASE 128 U/L (23-300); POTASSIUM 4.5 mmol/L (3.4-5.0); SODIUM 136 mmol/L (137-145); TOTAL PROTEIN 7.3 gm/dL (6.4-8.2)
[2020-01-13 23:36] LABS: ALANINE AMINOTRANSFERASE 29 U/L (4-49)
[2020-01-13 23:43] LABS: TROPONIN-I < 0.012 ng/mL (0.000-0.035)
[2020-01-13 23:47] LABS: LYMPHOCYTE 10 % (20.0-51.0); NEUTROPHILS 88 % (42.0-75.2); PROTHROMBIN TIME 11.4 SECONDS (9.7-12.8)
[2020-01-13 23:48] LABS: PLATELET ESTIMATE NORMAL (NORMAL)
[2020-01-13 23:49] LABS: PARTIAL THROMBOPLASTIN TIME 27.9 SECONDS (26.0-37.0)
[2020-01-14] VITALS (844 sets, daily range): BP systolic 141–179; BP diastolic 63–86; PULSE 56–99; TEMP 97.6–98.3; O2SAT 80–98
[2020-01-14] MEDS ORDERED: ELIQUIS 5MG PO (00:02)
[2020-01-14] MEDS ORDERED: PROBIOTIC ACID1 EAC3 PO (00:06)
--- NOTE | 2020-01-14 01:04 | NUR ---
Received report from ELISEO Marquis.
--- NOTE | 2020-01-14 01:22 | NUR ---
Patient arrives to IMCU room 17 via ED stretcher. Patient able to pivot to IMCU bed with one-person assist. Cardizem infusing to the left AC at 15 mg/hr or 15 mL/hr. Patient reports 5/10 chest pain, which he states is much better from time of admission. Initial BP 179/86, other vitals within normal limits. Neisha notified of arrival. Will continue to monitor.
[2020-01-14] MEDS ORDERED: LASIX 20MG TABL20 MG PO (01:51)
[2020-01-14] MEDS ORDERED: CENTANY AT2% TP (01:57)
[2020-01-14] MEDS ORDERED: IRON TABLETS325 MG PO (02:01)
[2020-01-14] MEDS ORDERED: MAG-OX 400400 MG/TAB PO (02:06)
[2020-01-14] MEDS ORDERED: ULTRAM 50MG TAB50 MG PO (02:34)
[2020-01-14] MEDS ORDERED: FIBER0.52 GM PO (02:35)
[2020-01-14] MEDS ORDERED: ICAPS TABLET1 EACH PO (02:36)
[2020-01-14 03:12] LABS: TSH w REFLEX 0.122 uIU/mL (0.465-4.680)
[2020-01-14 05:46] LABS: HEMOGLOBIN 10.4 g/dl (13.5-18.0); MEAN CELL VOLUME 94 fl (80.0-100.0); MEAN CORPUSCULAR HEMOGLOBIN 29 pg (27.0-31.0); MEAN CORPUSCULAR HGB CONC 31 g/dl (33.0-37.0); MEAN PLATELET VOLUME 9.8 fl (7.4-10.4); PLATELET COUNT 187 K/mm3 (130-400); REDCELL DISTRIBUTION WIDTH-CV 13.2 % (11.5-14.5)
[2020-01-14 05:52] LABS: HEMATOCRIT 33.7 % (42.0-52.0)
[2020-01-14 05:57] LABS: CALCIUM 8.7 mg/dL (8.4-10.2); CREATININE, serum 1.31 (0.66-1.25); POTASSIUM 4.5 mmol/L (3.4-5.0)
[2020-01-14 06:24] LABS: BAND 1 % (0-10); EOSINOPHIL 1 % (0-4); LYMPHOCYTE 12 % (20.0-51.0); NEUTROPHILS 81 % (42.0-75.2); PLATELET ESTIMATE NORMAL (NORMAL)
--- NOTE | 2020-01-14 07:30 | NUR ---
Report given to ELISEO Ramsay.
--- NOTE | 2020-01-14 07:30 | NUR ---
bedside report received from ELISEO Rojas.
--- NOTE | 2020-01-14 12:45 | NUR ---
Pt transferred to ICU 5 via wheelchair. Pt walked to recliner with x2 assist. Remains on cardizem gtt at 5mg/hr. Lunch tray set up and call light in reach. Report given to ELISEO Martin.
--- NOTE | 2020-01-14 12:48 | NUR ---
Report received from Sobia Back RN. Patient currently sitting up in recliner, eating lunch. Call light within reach.
--- NOTE | 2020-01-14 14:25 | NUR ---
DR. ADAMSON HERE TO DO CARDIOLOGY CONSULT.
--- NOTE | 2020-01-14 14:35 | NUR ---
DR. PEPE CALLED AT THIS TIME. UPDATE REGARDING CARDIOLOGY CONSULT AND DR. ADAMSON CHANGING IV CARDIZEM TO PO.
--- NOTE | 2020-01-14 18:30 | NUR ---
PATIENT ORIENTED TO ROOM 314. NO QUESTIONS AT THIS TIME.
--- NOTE | 2020-01-14 18:30 | NUR ---
STATES DURING PHONE CALL THAT THE PATIENT HAS BEEN ON PREDNISONE TAPER FOR UPPER BODY RASH. PREDNISONE TAPER ADDED TO HOME MED LIST. DR. PEPE CALLED. ORDERS RECEIVED TO CONTINUE TAPER WHILE IN HOSPITAL. SEE EMAR.
[2020-01-14] MEDS ORDERED: PREDNISONE20 MG PO (18:31)
--- NOTE | 2020-01-14 18:39 | NUR ---
REPORT CALLED TO ELISEO MALDONADO ON MEDICAL FLOOR. PATIENT TAKEN UP TO ROOM 314 AND CALLED WITH UPDATE.
[2020-01-15 03:15] VITALS: BP 152/74; PULSE 73; TEMP 97.7
--- NOTE | 2020-01-15 05:59 | NUR ---
TELE SHOWING PT STILL IN AFIB, RATE CONTROLLED MOST OF THE NIGHT. MORTUARY OPERATIONS MANAGER/RN CALLED TO REPORT PT'S HEART RATE DID SPIKE UP OVER 100 bpm SEVERAL TIMES DURING THE NIGHT.
[2020-01-15 08:30] VITALS: BP 176/81; PULSE 92; TEMP 97.3
--- NOTE | 2020-01-15 08:30 | NUR ---
Assessment charted. Patient A&Ox3. Reporting pain in chest, did not request pain medication and doctor aware. VSS. BP hypertensive. 2L NC O2, no reported SOB. IV CDI. No further needs expressed from patient. Call light within reach. Bed alarm on. Fall precautions in place.
--- NOTE | 2020-01-15 10:59 | NUR ---
Plan is to return home with partner Kelin [place] or C. Assess: Client reports that he resides with his life partner of 44 year locally. She will provide transportation. Client reports that he has occ. therapy once a week and they help with showering and shaving. Patient reports the use of 02 at night two liters not continuous. PCP is unknown. Patient shares that he obtains RX from [facility] without difficulty. Patient denies having any care concerns that would prevent him from DC. Patient does not have hearing aids but is hard of hearing. Action: Educated on resources available to him. No additional needs identified.
[2020-01-15 12:12] VITALS: BP 160/80; PULSE 69; TEMP 97.7
[2020-01-15 15:18] VITALS: BP 140/63; PULSE 56; TEMP 97.6
--- NOTE | 2020-01-15 18:20 | NUR ---
Patient had an uneventful day. A&O. Reporting intermittent chest pain, no pain medication requested. VSS. IV CDI. Patient NPo after midnight for a procedure in the AM 01/15. Patient verbalized an understanding. Patient on fall precautions. Call light within reach. Bed alarm on
[2020-01-15 20:49] VITALS: BP 140/59; PULSE 64; TEMP 98.5
--- NOTE | 2020-01-15 22:06 | NUR ---
RECIEVED REPORT FROM DAY SHIFT. PATIENT HAS BEEN HELPED TO THE BATHROOM TWICE SINCE TAKING OVER CARE ON HIM. BM ON TODAY. PATIENT DOES USE HIS WALKER WHEN GOING INTO THE RESTROOM. DID NOT REQUIRE ANY OXYGEN THIS EVENING. IV FLUSHED GREAT. DENIES ANY PAIN. CALL LIGHT WITHIN REACH
[2020-01-16] VITALS (13 sets, daily range): BP systolic 127–182; BP diastolic 37–80; PULSE 61–72; TEMP 97.5–98.6
--- NOTE | 2020-01-16 02:15 | NUR ---
PATIENT IS BACK TO RESTING IN BED AFTER USING THE BATHROOM
--- NOTE | 2020-01-16 04:14 | NUR ---
HAND UMBRELLA TIPPER NOTIFIED THIS NURSE OF A BLOOD PRESSURE THAT WAS HIGH, WENT INTO THE ROOM TO RETAKE THE BLOOD PRESSURE AND THE READINGS WERE BETTER. DISTRICT MEDICAL EXAMINER NOTIFIED.
--- NOTE | 2020-01-16 04:59 | NUR ---
PATIENT HAS RESTED THROUGH THE NIGHT WITH PERIODICALLY GETTING UP AND HAVING TO USE THE RESTROOM. PATIENT HAS BEEN GETTING UP AND AROUND WITH MY OBSEVATION AND BEING A STAND BY ASSIST. PATIENT IS NPO FOR ECHO AND LEXISCAN SOMETIME TODAY. CALL LIGHT WITHIN REACH AND USES IT WHEN HE NEEDS SOMETHING. WILL REPORT OFF TO DAY SHIFT UPON THEIR ARRIVAL .
[2020-01-16 06:31] LABS: HEMOGLOBIN 10.2 g/dl (13.5-18.0); MEAN CELL VOLUME 92 fl (80.0-100.0); MEAN CORPUSCULAR HEMOGLOBIN 29 pg (27.0-31.0); MEAN CORPUSCULAR HGB CONC 32 g/dl (33.0-37.0); MEAN PLATELET VOLUME 10.1 fl (7.4-10.4); PLATELET COUNT 172 K/mm3 (130-400); REDCELL DISTRIBUTION WIDTH-CV 13.2 % (11.5-14.5)
[2020-01-16 06:47] LABS: CALCIUM 8.6 mg/dL (8.4-10.2); CREATININE, serum 1.47 (0.66-1.25); HEMATOCRIT 32.3 % (42.0-52.0); POTASSIUM 4.5 mmol/L (3.4-5.0)
[2020-01-16 07:51] LABS: BAND 1 % (0-10); LYMPHOCYTE 58 % (20.0-51.0); NEUTROPHILS 38 % (42.0-75.2); PLATELET ESTIMATE NORMAL (NORMAL)
--- NOTE | 2020-01-16 08:30 | NUR ---
Patient is awake and alert in room, was assisted to restroom with walker, gait steady. Is eager to complete cardiac testing so he can eat. He is denying pain. Call light and personal items are within reach.
--- NOTE | 2020-01-16 11:01 | NUR ---
TSERING contacted the patient's life partner, Kelin, to review discharge plan and to give an update. Kelin confirms that the patient lives with her in [place]. She states that the patient receives home health services from [facility]. TSERING attempted to contact Lala at [facility]. TSERING left her a voicemail and faxed over updates. Keiln reports that she would like for the patient to return home with her and continue services from [facility], if the patient is able to. She states if the patient would need to go somewhere for a skilled stay, then she would prefer [facility]. SW to follow up with the patient and will continue to follow.
--- NOTE | 2020-01-16 16:06 | NUR ---
SW met with the patient to review discharge plan and to discuss PT's recommendation of home vs post-acute rehab. The patient reports that he prefers to return home with his life partner and resume home health services from [facility]. SW to continue to follow.
--- NOTE | 2020-01-16 19:18 | NUR ---
Patient is sitting up on the side of the bed eating supper. Does not require any insulin this evening. He is denying pain. Has call light and personal items within reach.
[2020-01-17 04:14] VITALS: BP 162/64; PULSE 69; TEMP 97.9
--- NOTE | 2020-01-17 05:25 | NUR ---
PATIENT HAS HAD A PEACEFUL NIGHT OTHER THAN GETTING UP TO USE THE RESTROOM. TOOK HIS EVENING PILLS WITH NO DIFFICULTY. WILL REPORT OFF TO DAY SHIFT UPON THEIR ARRIVAL
[2020-01-17 07:32] VITALS: BP 180/56; PULSE 66; TEMP 97.6
--- NOTE | 2020-01-17 09:21 | NUR ---
Pt assessment complete. Pt is laying in bed sleeping, arouses to voice. He is oriented x4. His breathing is even and unlabored on 2L O2 via NC. Pt denies SOB at rest, reports dyspnea on exertion. Pt denies pain. No N/V. Pills given crushed in applesauce per patient request. Dr. Park in to see patient at this time. No needs, call light within reach.
[2020-01-17 09:37] LABS: CALCIUM 8.7 mg/dL (8.4-10.2); CREATININE, serum 1.27 (0.66-1.25); POTASSIUM 4.4 mmol/L (3.4-5.0)
[2020-01-17] MEDS ORDERED: PACERONE200 MG PO (09:50)
[2020-01-17] MEDS ORDERED: NORVASC 10MG10 MG PO (10:04)
--- NOTE | 2020-01-17 10:21 | NUR ---
TSERING attended clinical rounds. The patient is to tentatively discharge today, 01/16, depending on lab results. The hospitalist discussed post-acute rehab vs home health. The patient reports that he prefers to return home with home health. TSERING contacted and updated the patient's life partner, Kelin. Kelin is in agreeance to the plan. TSERING notified Lala at [facility]. Lala reports that if the patient does discharge today, then they will have their RN visit the patient tomorrow. TSERING informed Kelin of this. TSERING to continue to follow.
[2020-01-17 10:30] VITALS: BP 168/62
--- NOTE | 2020-01-17 11:27 | NUR ---
The patient is to discharge back home with his life partner, today, 01/16, with home health services for PT/OT/correction from [facility]. TSERING faxed the patient's discharge orders to Lala at [facility]. Transportation back home is to be provided by his life partner at 1300. No additional needs at this time.
[2020-01-17 11:56] VITALS: BP 168/65; PULSE 77; TEMP 98.1
--- NOTE | 2020-01-17 13:28 | NUR ---
Pt assisted in showering. Discharge paperwork and instructions reviewed with both patient and his . IV to LAC dc'd catheter tip intact. Pt wheeled out of facility at this time.
--- NOTE | 2020-01-17 15:09 | NUR ---
TSERING received a phone call from the patient's life partner, Kelin. Kelin reports that she has returned home with the patient, but her and the patient are now reconsidering coming home and would prefer SNF. Kelin states that her son works at [facility] and that they have a bed available. TSERING informed Kelin how a SNF stay would be private pay. Kelin verbalized understanding and was agreeable to still private pay at [facility]. TSERING contacted and faxed a referral to Kelin at [facility]. Kelin reports that they can accept the patient for an emergency admit stay. TSERING attempted to contact the patient's life partner. TSERING left her a voicemail. Kelin, at [facility], informed TSERING that the patient and his life partner are on their way to the facility. TSERING updated the [facility]. TSERING faxed discharge orders to [facility]. TSERING updated Lala at [facility]. The patient discharged today, 01/16, to [facility] for a private pay emergency admit stay. No additional needs at this time.
== END 2020-01-17 14:06 | disposition short-term general hospital (02) | DRG 280 ==
LOC: COL.ER 22:28 → IMCU 01-14 00:32 → ICU 01-14 12:47 → MEDICAL 01-14 18:45
PROVIDERS: Emergency Medicine; Nurse Practitioner Family; Physician Assistant; ADMIT Student in an Organized Health Care Education/Training Program
DX: I48.0 Paroxysmal atrial fibrillation (principal); I21.A1 Myocardial infarction type 2; I50.33 Acute on chronic diastolic (congestive) heart failure; N17.9 Acute kidney failure, unspecified; F33.9 Major depressive disorder, recurrent, unspecified; J44.9 Chronic obstructive pulmonary disease, unspecified; E78.5 Hyperlipidemia, unspecified; I11.0 Hypertensive heart disease with heart failure; G47.33 Obstructive sleep apnea (adult) (pediatric); M06.9 Rheumatoid arthritis, unspecified; M51.36 Other intervertebral disc degeneration, lumbar region; R73.9 Hyperglycemia, unspecified; I35.0 Nonrheumatic aortic (valve) stenosis; E86.1 Hypovolemia; Z87.891 Personal history of nicotine dependence
CPT/HCPCS: 99231-AI; 99232-AI; 99239; A9500; G0378; J2060; J2785; J3010; J7512

== ENCOUNTER 2020-08-24 12:57 | Inpatient (IN) | payer MEDICARE, OTHER ==
[~2020-08-24] VITALS: Ht 190.5 cm; Wt 91.3 kg
[~2020-08-24 12:57] MED LIST changes: +AYR SALINE GEL1 NS; +CENTANY AT2% TP; +COLACE 100100 MG/CAP PO; +CORDARONE200 MG/TAB PO; +FIBER0.52 GM PO; +ICAPS TABLET1 EACH PO; +IRON TABLETS325 MG PO; +K-DUR20 MEQ PO; +KEPPRA 500MG500 MG PO; +MAG-OX 400400 MG/TAB PO; +PACERONE200 MG PO; +PROBIOTIC ACID1 EAC3 PO
[2020-08-24 15:06] LABS: BASO % 0.4 % (0.0-2.0); EOS # 0.2 (0.0-0.7); EOS % 2.2 % (0-4.0); GRAN # 7.7 (1.4-6.5); GRAN % 78.7 % (42.2-75.2); HEMATOCRIT 36.1 % (42.0-52.0); HEMOGLOBIN 11.4 g/dl (13.5-18.0); LYMPH # 0.6 (1.2-3.4); LYMPH % 6.2 % (20.0-51.0); MEAN CELL VOLUME 92 fl (80.0-100.0); MEAN CORPUSCULAR HEMOGLOBIN 29 pg (27.0-31.0); MEAN CORPUSCULAR HGB CONC 32 g/dl (33.0-37.0); MEAN PLATELET VOLUME 10.5 fl (7.4-10.4); MONO # 1.2 (0.1-0.6); MONO % 12.1 % (1.7-9.3); PLATELET COUNT 153 K/mm3 (130-400); RED BLOOD COUNT 3.94 M/mm3 (4.20-5.60); REDCELL DISTRIBUTION WIDTH-CV 13.9 % (11.5-14.5)
[2020-08-24 15:19] LABS: CALCIUM 8.9 mg/dL (8.4-10.2); CREATININE, serum 1.63 (0.66-1.25); POTASSIUM 4.8 mmol/L (3.4-5.0)
[2020-08-24] MEDS ORDERED: TYLENOL 8 HR PO (15:39)
[2020-08-24] MEDS ORDERED: ULTRAM 50MG TAB50 MG PO (15:44)
[2020-08-24] MEDS ORDERED: NORVASC 10MG10 MG PO (15:44)
[2020-08-24] MEDS ORDERED: MIRALAX PA17 GM/Dose PO (15:45)
[2020-08-24] MEDS ORDERED: KLOR-CON M2020 MEQ PO (15:46)
[2020-08-24] MEDS ORDERED: MILK OF MA400 MG/52 PO (15:46)
[2020-08-24] MEDS ORDERED: VOLTAREN GEL 1%1 TU TP (15:47)
[2020-08-24] MEDS ORDERED: ICAPS AREDS SO1 EACH PO (16:10)
--- NOTE | 2020-08-24 16:32 | NUR ---
The patient was a direct admit from his PCP, Dr. Anthony Fair's, office. The patient and his life partner, Kelin, are wanting to pursue hospice at the [facility]. TSERING contacted Mireya at the [facility]. Mireya states that they do have a bed available and would be able to take the patient on Thursday. TSERING then met with the patient's life partner/DPOA-HC, Kelin, to review d/c plan. The patient's RN was also present. Kelin asked TSERING and the RN why they were stopping all of his meds. TSERING explained hospice. Kelin states that she does not want to stop treatment for the patient and wants him to continue to taking his meds. She states that she must have not understood what hospice was when it was discussed at his PCP's office. TSERING then discussed care home placement with Kelin, due to his weakness and frequent falls. Kelin states that the patient never wanted to go back to the care home, but that she is agreeable to care home placement for him at [facility]. She states that the patient has been to [facility] and that her son works there. TSERING notified the hospitalist. TSERING contacted and emailed a referral to Kelin at [facility]. Kelin reports that she had spoke to Kelin and Dr. Fair this morning, but the decision was made to go to hospice. Kelin states that they are able to accept the patient on Thursday and would want a COVID test within 24 hours of d/c. TSERING notified the hospitalist. TSERING then contacted and updated ELISEO Bautistaanalytical research chemist, at [facility]. TSERING to continue to follow.
[2020-08-24 17:00] VITALS: BP 157/56; PULSE 76; TEMP 98.6
--- NOTE | 2020-08-24 19:15 | NUR ---
Pt was sleeping when this nurse went for a bedsite handover. No further needs at this time, will keep monitoring.
[2020-08-24 19:55] VITALS: BP 143/52; PULSE 76; TEMP 100.3
[2020-08-24 23:31] VITALS: BP 124/60; PULSE 73; TEMP 98.4
--- NOTE | 2020-08-25 01:55 | NUR ---
Pt assessment completed and charted. Meds provided as per MAR, as well as PRN pain meds on pt request for headache, tolerated well. Pt is settled on his bed, call light is on reach, bed alaram is on. No further needs at this time.
[2020-08-25 03:46] VITALS: BP 133/52; PULSE 67; TEMP 98.5
--- NOTE | 2020-08-25 06:13 | NUR ---
Pt had an uneventful night, slept on and off. Morning meds provided as per DEC. No further needs at this time.
[2020-08-25 08:10] LABS: BASO % 0.4 % (0.0-2.0); EOS # 0.1 (0.0-0.7); EOS % 1.6 % (0-4.0); GRAN # 3.4 (1.4-6.5); HEMATOCRIT 31.4 % (42.0-52.0); HEMOGLOBIN 9.9 g/dl (13.5-18.0); LYMPH # 0.8 (1.2-3.4); LYMPH % 14.8 % (20.0-51.0); MEAN CELL VOLUME 92 fl (80.0-100.0); MEAN CORPUSCULAR HEMOGLOBIN 29 pg (27.0-31.0); MEAN CORPUSCULAR HGB CONC 32 g/dl (33.0-37.0); MEAN PLATELET VOLUME 10.8 fl (7.4-10.4); MONO # 1.1 (0.1-0.6); MONO % 19.7 % (1.7-9.3); PLATELET COUNT 161 K/mm3 (130-400); REDCELL DISTRIBUTION WIDTH-CV 14.1 % (11.5-14.5)
[2020-08-25 08:20] LABS: CALCIUM 8.1 mg/dL (8.4-10.2); CREATININE, serum 1.69 (0.66-1.25); POTASSIUM 4.1 mmol/L (3.4-5.0)
[2020-08-25 08:24] VITALS: BP 165/57; PULSE 76; TEMP 97.8
[2020-08-25 11:19] VITALS: BP 136/49; BP 142/46; PULSE 71; TEMP 97.8
[2020-08-25 15:17] LABS: COLLECTION METHOD CLEAN CATCH
[2020-08-25 15:27] LABS: PH 5 (5-8); SQUAMOUS EPITHELIAL None Seen /hpf; URINE APPEARANCE Clear; URINE BACTERIA Rare /hpf; URINE BILIRUBIN Negative (NEGATIVE); URINE BLOOD Negative (NEGATIVE); URINE COLOR Straw; URINE GLUCOSE Negative (NEGATIVE); URINE KETONE Negative (NEGATIVE); URINE LEUKOCYTE ESTERASE Negative (NEGATIVE); URINE NITRATE Negative (NEGATIVE); URINE PROTEIN(semi-quant) 2+ (NEGATIVE); URINE RBC None Seen /hpf; URINE UROBILINOGEN Negative (NEGATIVE)
[2020-08-25 16:54] VITALS: BP 125/62; PULSE 65; TEMP 98.2
[2020-08-25 19:15] VITALS: BP 146/61; PULSE 66; TEMP 98.4
--- NOTE | 2020-08-25 19:35 | NUR ---
Raffi has done well throughout the day. Has been up multiple times to restroom with stand by assist and walker; steady gait. Patient denies pain throughout the day. Fluids infusing throughout the day. Patient has bandaids to left and right great toes; states he had a nail removed from right toe and ingrown toenail removed from left great toe. O2 @ 2L via NC throughout the day. Denies further needs at this time. Reported off to table games shift manager.
--- NOTE | 2020-08-25 19:51 | NUR ---
Pt was setting on his bed when this nurse went for a bedside handover. Pt is complaining of dry nose, no further needs at this time.
[2020-08-25 23:54] VITALS: BP 139/44; PULSE 60; TEMP 97.6
--- NOTE | 2020-08-26 01:00 | NUR ---
Pt assessment completed and charted, alert, oriented, 2 lit o2 on NC. Meds provided as per DEC, tolerated well. Pt is settled on his bed, call light is on reach. No further needs at this time.
[2020-08-26 04:51] VITALS: BP 149/62; PULSE 65; TEMP 97.5
--- NOTE | 2020-08-26 06:07 | NUR ---
Pt slept through out the night, no further needs at this time, will keep monitoring.
[2020-08-26 08:24] VITALS: BP 154/53; PULSE 73; TEMP 97.7
[2020-08-26 08:39] LABS: BASO % 0.5 % (0.0-2.0); EOS % 0.2 % (0-4.0); GRAN # 4.4 (1.4-6.5); GRAN % 68.9 % (42.2-75.2); HEMOGLOBIN 11.2 g/dl (13.5-18.0); LYMPH # 1.4 (1.2-3.4); LYMPH % 22.3 % (20.0-51.0); MEAN CELL VOLUME 90 fl (80.0-100.0); MEAN CORPUSCULAR HEMOGLOBIN 29 pg (27.0-31.0); MEAN CORPUSCULAR HGB CONC 32 g/dl (33.0-37.0); MEAN PLATELET VOLUME 10.3 fl (7.4-10.4); MONO # 0.5 (0.1-0.6); MONO % 7.6 % (1.7-9.3); PLATELET COUNT 185 K/mm3 (130-400); REDCELL DISTRIBUTION WIDTH-CV 13.9 % (11.5-14.5)
[2020-08-26 08:40] LABS: HEMATOCRIT 35.1 % (42.0-52.0)
[2020-08-26 08:49] LABS: CALCIUM 8.9 mg/dL (8.4-10.2); CREATININE, serum 1.49 (0.66-1.25); POTASSIUM 3.9 mmol/L (3.4-5.0)
[2020-08-26 11:54] VITALS: BP 169/60; PULSE 71; TEMP 98
[2020-08-26 16:05] VITALS: BP 175/72; PULSE 78; TEMP 98.3
--- NOTE | 2020-08-26 17:52 | NUR ---
SW followed up with nurse to ensure that Covid test was placed in. SW will continue to follow.
--- NOTE | 2020-08-26 20:28 | NUR ---
Patient covid +. Moved from 351 to 304. Assessment complete. Lungs clear. Heart sounds normal. Bowels active x4. Pulses present throughout. Bilateral lower extremity edema +1. INT left hand flushed without complications. Denies pain. Denies needs at this time. updated regarding transfer.
[2020-08-26 20:30] VITALS: BP 170/82; PULSE 80; TEMP 98.6
[2020-08-27] VITALS (7 sets, daily range): BP systolic 14–157; BP diastolic 40–82; PULSE 67–76; TEMP 97–98.8
--- NOTE | 2020-08-27 00:25 | NUR ---
Resting in bed. Denies pain. Denies needs. Call light in reach.
--- NOTE | 2020-08-27 02:22 | NUR ---
Resting in bed asleep. Call light in reach.
--- NOTE | 2020-08-27 04:15 | NUR ---
Resting in bed. Denies needs. Call light in reach.
--- NOTE | 2020-08-27 06:07 | NUR ---
Patient had uneventful night. Resting in bed this AM. Call light in reach.
--- NOTE | 2020-08-27 06:45 | NUR ---
Report given to ELISEO Vela
--- NOTE | 2020-08-27 07:25 | NUR ---
PT ROUNDED ON DURING REPORT OUTSIDE ROOM. LYING ON LEFT SIDE AND DENIES NEEDS. CALLED 30 MINS LATER STATING HE WAS HAVING TROUBLE CATCHING HIS BREATH. RR 20. O2 97% ON 2L NC. DENIES FEELINGS OF ANXIETY. LUNGS CLEAR DIMINISHED THROUGHOUT. NSR ON TELE @ 76 WITH NO IRREGULARITIES. SITTING UP IN BED. POOR APPETITE AND REFUSED BREAKFAST. ENCOURAGED TO EAT. DENIES NAUSEA. BM X2 OVERNIGHT PER REPORT THUS WILL SKIP MORNING MOM. WILL CONT TO MONITOR.
--- NOTE | 2020-08-27 09:45 | NUR ---
MORNING MDS GIVEN. PT AOX4. HARD OF HEARING AND OCCASIONALLY MUMBLES. REPORTS GARCIA TO LOWER BACK AND LANE KNEES. VOLTAREN APPLIED. STRONG DRY COUGH. CONTINUES ON 1.5L NC. DENIES NAUSEA. LANE BASES DIMINISHED. HRRR.
--- NOTE | 2020-08-27 10:34 | NUR ---
tylenol given for headache and right hip pain. brought order from foot doc appt for antibiotic cream and cleansing to bret great toes. intact bandaids currently on. pt drank 90% of ensure
--- NOTE | 2020-08-27 11:02 | NUR ---
DR NICHOLE CALLED AND WENT TO VOICEMAIL. MESSAGE LEFT
[2020-08-27 12:06] LABS: INR 1.3 (0.8-3.0)
[2020-08-27 12:09] LABS: PARTIAL THROMBOPLASTIN TIME 32.6 SECONDS (26.0-37.0)
[2020-08-27 12:20] LABS: TROPONIN-I 0.012 ng/mL (0.000-0.035)
[2020-08-27 12:42] LABS: D-DIMER < 200.00 ng/mLDDu (200-230)
--- NOTE | 2020-08-27 13:28 | NUR ---
IV TO LEFT HAND DISCLODGED BY PT. SITE CLEANED AND NEW SITE TO LEFT FA. PT AMBULATED SELF TO BATHROOM AND HAD A BM. EDUCATED AGAINST SELF-AMBULATION. BED ALARM WAS GOING OFF. TO BRING NERVE STIMULATOR CHARGING FOR PT'S BACK PAIN. IMPLANT NOTED TO RT HIP/PELVIS.
--- NOTE | 2020-08-27 14:18 | NUR ---
The patient tested postive for COVID. TSERING notified and emailed updates to Kelin at [facility]. Kelin states that she will need to check with her administator on their guidelines and what they would require to be able to take the patient. TSERING contacted and updated the patient's life partner, Kelin. Kelin states that she just got back home from being tested. Kelin requests that we just keep her updated on what to do or what happens next. SW to continue to follow.
--- NOTE | 2020-08-27 16:26 | NUR ---
pt reports back/rt hip pain now completely gone since spouse brought nerve stimulator activation device. no needs at this time
--- NOTE | 2020-08-27 19:00 | NUR ---
Report received from ELISEO Vela. Pt resting in bed. Denies needs at this time.
--- NOTE | 2020-08-27 19:30 | NUR ---
END OF SHIFT NOTE: pt aox4. denies pain. was on 0.5l nc during daytime. increased to 2L as per his home dose at night. pt ambulated to bathroom without oxygen several times and sustained 95%. Likes to have the additional oxygen for comfort. reports feeling cold. no fevers. warm blankets provided and room temp raised. able to make needs known. voids frequently and had 3 soft/formed BMs this shift.
--- NOTE | 2020-08-27 21:11 | NUR ---
Shift assessment complete. Pt reports pain to bilateral knees, tylenol administered and diclofenac ointment applied. Expiratory wheezes noted, HRRR, A&Ox4. On 2 L O2 NC with sats in mid to high 90s. Denies other needs at this time. WIll continue to monitor.
[2020-08-28 03:45] VITALS: BP 160/60; PULSE 64; TEMP 97.3
[2020-08-28 06:42] LABS: BASO % 0.2 % (0.0-2.0); GRAN # 4.9 (1.4-6.5); GRAN % 78.7 % (42.2-75.2); HEMOGLOBIN 10.7 g/dl (13.5-18.0); LYMPH # 0.7 (1.2-3.4); LYMPH % 10.7 % (20.0-51.0); MEAN CELL VOLUME 90 fl (80.0-100.0); MEAN CORPUSCULAR HEMOGLOBIN 29 pg (27.0-31.0); MEAN CORPUSCULAR HGB CONC 32 g/dl (33.0-37.0); MEAN PLATELET VOLUME 10.5 fl (7.4-10.4); MONO # 0.6 (0.1-0.6); MONO % 9.9 % (1.7-9.3); PLATELET COUNT 178 K/mm3 (130-400); RED BLOOD COUNT 3.73 M/mm3 (4.20-5.60); REDCELL DISTRIBUTION WIDTH-CV 13.5 % (11.5-14.5)
[2020-08-28 06:43] LABS: HEMATOCRIT 33.5 % (42.0-52.0)
[2020-08-28 07:17] VITALS: BP 166/64; PULSE 75; TEMP 98.5
--- NOTE | 2020-08-28 12:11 | NUR ---
Patient alert and oriented. complain of 7/10 pain on both knees. patient ambulate with walker to the bathroom with standby assist. currently on 2L of O2. Dyspnea on exertion, resolves at rest. Patient resting in bed at this time. Complain of nausea after returning from bathroom trip once. No emesis.
[2020-08-28 13:00] VITALS: BP 180/82; PULSE 87; TEMP 99
[2020-08-28 16:27] VITALS: BP 158/70; PULSE 72; TEMP 97.8
--- NOTE | 2020-08-28 18:58 | NUR ---
Patient complain that tylenol was not strong enough for his pain. Dr Moore gave a phone order -Tramadol 50mg Q6h prn. Gave patient one dose of tramadol on this shift for back and knee pain.
--- NOTE | 2020-08-28 19:25 | NUR ---
Received report from Mehran. Seen patient awake, lying in bed. Assisted him to the bathroom. He complains of pain on his bilateral knees with pain score of 7/10. On O2 at 2lpm via NC. Call light within reach. No shortness of breath or difficulty of breathing noted.
[2020-08-28 19:54] VITALS: BP 150/82; PULSE 77; TEMP 97.8
--- NOTE | 2020-08-28 21:45 | NUR ---
Night meds given. Assisted patient to the bathroom. Call light within reach.
--- NOTE | 2020-08-28 22:30 | NUR ---
Patient called and needs assistance to the bathroom. His sheets are soiled. Informed patient to stay seated while his bed sheets and blankets were being changed. Changed his gown as well.
[2020-08-28 23:34] VITALS: BP 138/62; PULSE 71; TEMP 98.3
[2020-08-29 03:19] VITALS: BP 144/52; PULSE 70; TEMP 97.3
--- NOTE | 2020-08-29 06:32 | NUR ---
Patient still with complains of bilateral knee pain. Tramadol given. Still on O2 at 2lpm.
[2020-08-29 07:01] LABS: BILIRUBIN,TOTAL 0.4 mg/dL (0.0-1.0); CALCIUM 8.4 mg/dL (8.4-10.2); CREATININE, serum 1.61 (0.66-1.25); POTASSIUM 4.5 mmol/L (3.4-5.0); TOTAL PROTEIN 7.2 gm/dL (6.4-8.2)
[2020-08-29 07:33] VITALS: BP 144/62; PULSE 66; TEMP 97.6
[2020-08-29 12:10] VITALS: BP 156/70; PULSE 78; TEMP 97.5
--- NOTE | 2020-08-29 15:13 | NUR ---
Kelin, at [facility], reports that she is waiting to hear back from their regional; but that it could be that they cannot take the patient until 14 days after his positive test. SW contacted the patient's life partner, Kelin, to update. SW informed her of the obstacle of the patient being positive and finding a facility that will take the patient while he is positive. Kelin verbalized understanding. She states that she is agreeable with SW sending referrals to other facilities. She states that she is agreeable with the patient going to another facility, before [facility] can take him. Kelin states that her COVID results came back negative. She states that she is disabled and would not be able to take care of the patient in the home and would not be able to do anything if he fell. SW reviewed hospice and comfort measures with Kelin again and what it is. Kelin verbalized understanding and reports that hospice is not want she wants for the patient. She states that the patient is not ready for hospice and she is not ready to stop treatment for him. She wants to pursue SNF. SW contacted [facility], [facility], and [facility] to inquire if they can take COVID positive patients: [facility]: At the earliest, cannot take until 20 days after their positive test. [facility]: Not taking any positive patients. [facility] and [facility] are checking and will let SW know, when they have an answer.
--- NOTE | 2020-08-29 15:55 | NUR ---
Charlene, at [facility], reports that they could take a positive patient. TSERING notified Charlene of the patient being ready to d/c and faxed her a referral. TSERING awaiting their screen.
[2020-08-29 17:03] VITALS: BP 178/84; PULSE 83; TEMP 100.3
--- NOTE | 2020-08-29 19:28 | NUR ---
REPORT RECEIVED FROM TRACY GOMES. PT RESTING IN BED, STATES HE NEEDS TO USE RESTROOM. THIS RN ASSISTED PT STANDBY TO BATHROOM AND BACK TO BED. O2 AT 2L NC. REPORTS SOA AND LABORED BREATHING AFTER AMBULATION. WILL CONTINUE TO MONITOR.
[2020-08-29 19:29] VITALS: BP 168/78; PULSE 75; TEMP 97
--- NOTE | 2020-08-29 20:15 | NUR ---
Shift assessment complete. Pt resting in bed with NC on at 2 L O2. Up to restroom x2 so far this shift with one BM. Ambulates SBA with walker, gait steady. Breathing easy and unlabored at rest, labored with exertion. Expiratory wheezes heard upon auscultation. Reports SOA with exertion, denies at rest. Heart rate and rhythm regular, A&Ox4. INT to left forearm site without redness or swelling, flushes easily, pt reports sharp pain at site during flush. Reports pain 7/10 to bilateral knees, dicolfenac ointment applied and ultram administered. Denies other needs at this time. Will continue to monitor.
[2020-08-29 23:19] VITALS: BP 150/64; PULSE 71; TEMP 97.8
[2020-08-30 03:57] VITALS: BP 152/66; PULSE 61; TEMP 97.7
--- NOTE | 2020-08-30 05:04 | NUR ---
Slept on and off throughout night. Got up to use restroom several times SBA with walker. Frequent reports of moderate to severe pain in bilateral knees, partial relief from alternating between tylenol and tramadol. Remains on 2 L O2 NC with sats at 92% throughout night. Remains afebrile.
--- NOTE | 2020-08-30 07:21 | NUR ---
PATIENT NEES 3LPM WHILE AMBULATING AND 2LPM WHILE AT REST.
[2020-08-30 08:54] VITALS: BP 156/64; PULSE 62; TEMP 98.3
--- NOTE | 2020-08-30 09:10 | NUR ---
Kelin, at [facility], reports that she heard back from their regional and that they would not be able to take the patient until 20 days after his postive test results.
[2020-08-30] MEDS ORDERED: ROBITUSSIN DM 105 ML PO (10:39)
[2020-08-30] MEDS ORDERED: DECADRON6 MG PO (10:39)
[2020-08-30] MEDS ORDERED: MONODOX100 PO (10:40)
[2020-08-30] MEDS ORDERED: ULTRAM 50MG TAB50 MG PO (10:40)
[2020-08-30] MEDS ORDERED: RT Albuterol HFA MDI IH ×2 (10:40)
--- NOTE | 2020-08-30 11:15 | NUR ---
Assessment complete. Patient resting in bed on entry. Patient is hard of hearing. States that he feels alright today. No urgent complaints of pain or discomfort. Gel applied to knees for pain. Patient took pills well. IV site is CD&I but patient reported intense pain while flushing. This will be removed on his departure for transport. Patient is now aware of his POC, Dr. Park discussed this with him. No other needs were expressed at this time. CAll light is in reach.
--- NOTE | 2020-08-30 11:27 | NUR ---
Charlene, at [facility], reports that they are able to accept the patient today and that the accepting provider is Joanne Mckinnon for the the doc-to-doc. TSERING notified the hospitalist. TSERING provided the RN report number to the patient's RN. TSERING contacted You at [facility] to inquire if transporation to [facility] would be covered or if it would be private pay. You reports that it would be private pay and estimated the cost around $1,000. TSERING contacted and updated the patient's life partner/DPOA-HC, Kelin. Kelin is in agreement with the patient going to [facility] and states that she can provide transportation for the patient. TSERING notified Kelin at [facility]. Kelin requested the patient's d/c orders. TSERING faxed her the patient's d/c orders. TSERING attempted to notify Lily, neurology hospitalist, at the patient's PCP's office. TSERING left her a voicemail. The patient is to discharge today, 08/30, to [facility]. Transportation to be by private vehicle, via the patient's life partner at 1300. TSERING notified Charlene at [facility] and the patient's RN of the time. They were both agreeable to the time. TSERING also read the IM form outloud to the patient's life partner/ DPOA-HC, Kelin, over the phone. Kelin verbalized understanding and gave TSERING approval to sign the form on her behalf. No additional needs at this time.
[2020-08-30 12:13] VITALS: BP 155/80; PULSE 70; TEMP 98
[2020-08-30 12:52] VITALS: BP 155/80; PULSE 70; TEMP 98
[2020-08-30] MEDS ORDERED: LASIX 40MG TABL40 MG PO (12:55)
--- NOTE | 2020-08-30 13:37 | NUR ---
Patient left the floor at this time. D/C packet sent with patient. All questions answered. IV removed as it was painful for patient and no IV meds were ordered. Report called to nurse in [place].
[2020-08-30] MEDS ORDERED: ELIQUIS 2.5 PO (16:38)
== END 2020-08-30 13:40 | disposition swing bed (61) | DRG 177 ==
LOC: MEDICAL 12:57 → PEDS 13:40 → MEDICAL 13:40 → PEDS 08-25 23:00
PROVIDERS: Internal Medicine; Physician Assistant; ADMIT Student in an Organized Health Care Education/Training Program
DX: U07.1 COVID-19 (principal); J96.21 Acute and chronic respiratory failure with hypoxia; N17.9 Acute kidney failure, unspecified; I13.0 Hypertensive heart and chronic kidney disease with heart failure and stage 1 through stage 4 chronic kidney disease, or unspecified chronic kidney disease; I50.30 Unspecified diastolic (congestive) heart failure; J44.1 Chronic obstructive pulmonary disease with (acute) exacerbation; R53.81 Other malaise; M10.9 Gout, unspecified; K59.00 Constipation, unspecified; G40.909 Epilepsy, unspecified, not intractable, without status epilepticus; F32.9 Major depressive disorder, single episode, unspecified; E78.5 Hyperlipidemia, unspecified; G47.33 Obstructive sleep apnea (adult) (pediatric); M51.36 Other intervertebral disc degeneration, lumbar region; N18.9 Chronic kidney disease, unspecified; I48.0 Paroxysmal atrial fibrillation; Z87.891 Personal history of nicotine dependence
CPT/HCPCS: OP; 99232-AI; 99233-AI; 99239; G0378; J0360; J7030; J7512; J8540